=== PATIENT | female | born 2000 | race Caucasian/White ===

== ENCOUNTER 2025-04-06 09:40 | Day surgery (SDC) | payer SELFPAY ==
[~2025-04-06 09:40] MED LIST: Midazolam 1 MG/ML 2 ML SDV ONE; Propofol 200 MG/20 ML SDV ONE; Sodium Chloride 0.9% 10 ML Syringe FLUSH PRN
[2025-04-06] MEDS: Lactated Ringers 1,000 ML IV SCH (10:31)
== END 2025-04-06 12:06 | disposition home or self-care (01) ==
LOC: LL.SDS 09:40
PROVIDERS: ATTEND Surgery
DX: D12.5 Benign neoplasm of sigmoid colon (principal); R19.4 Change in bowel habit; F17.210 Nicotine dependence, cigarettes, uncomplicated; Z79.899 Other long term (current) drug therapy
CPT/HCPCS: 00811; 81025; J2250; J2704; J7120

== ENCOUNTER 2025-04-17 16:23 | Emergency (ER) | payer SELFPAY ==
[2025-04-17] MEDS: Take Home: Amoxicillin/Clavulanate K 875-125 MG Tab, 6 Tab Pack PO ONE (17:54)
[2025-04-17] MEDS: Diphtheria,Pertussis(Acell),Tetanus Vaccine 0.5 ML Syringe IM ONE (17:57)
[2025-04-17] MEDS: Rabies Immune Globulin/PF (HyperRAB) 300 UNIT/ML 1 ML SDV IM ONE (18:06)
[2025-04-17] MEDS: Rabies Immune Globulin/PF (HyperRAB) 300 UNIT/ML 5 ML SDV IM ONE (18:15)
[2025-04-17] MEDS: Rabies Vaccine (Avian) 2.5 Unit Inj Kit IM ONE (18:15)
== END 2025-04-17 18:40 | disposition home or self-care (01) ==
LOC: LL.ED 16:23
DX: S61.250A Open bite of right index finger without damage to nail, initial encounter (principal); Z20.3 Contact with and (suspected) exposure to rabies; Z23 Encounter for immunization; F17.200 Nicotine dependence, unspecified, uncomplicated; Z79.899 Other long term (current) drug therapy; W55.01XA Bitten by cat, initial encounter
CPT/HCPCS: 12002; 90375; 90471; 90675; 90715; 96372; 99283; 99283-25; A9270-GY; J2003